=== PATIENT | male | born 1945 | race Caucasian/White ===

== ENCOUNTER → 2016-12-20 | Outpatient (CLI) | payer BC ==
[2016-12-20 12:22] LABS: BASO % 0.7 %; BASO ABS # 0.03 K/uL (0-0.2); COMPLETE YES; EOS % 2.6 %; HEMATOCRIT 36.7 % (42-52); IG% 0.7 %; LYMPH ABS # 1.22 K/uL (1.2-3.4); MEAN CORPUSCULAR HEMOGLOBIN 29.1 pg (25-34); MEAN CORPUSCULAR HGB CONC 34.6 g/dl (32-36); MEAN PLATELET VOLUME 10.6 fL (7.4-10.4); MONO % 10.5 %; NEUT % 56.5 %; PLATELET COUNT 240 K/uL (130-400); RED BLOOD COUNT 4.37 M/uL (4.7-6.1)
[2016-12-20 12:36] LABS: ESTIMATED AVERAGE GLUCOSE 174 mg/dl; HA1C FLAG Normal (Normal)
[2016-12-20 12:40] LABS: ALT/SGPT 23 U/L (12-78); BLOOD UREA NITROGEN 19 mg/dl (7-18); BUN/CREATININE RATIO 22.8 (10-20); CALCIUM 9.8 mg/dl (8.5-10.1); CARBON DIOXIDE 27 mmol/L (21-32); CHLORIDE 103 mmol/L (98-107); CHOLESTEROL 190 mg/dl (0-200); CREATININE 0.82 mg/dl (0.60-1.40); GLUCOSE 169 mg/dl (70-99); POTASSIUM 4.3 mmol/L (3.5-5.1); SODIUM 138 mmol/L (136-145)
[2016-12-20 12:45] LABS: ALB/GLOB RATIO 1.2 (0.9-2); ALKALINE PHOSPHATASE 65 U/L (45-117); AST/SGOT 19 U/L (15-37); CHOLESTEROL/HDL RATIO 4.5; HDL CHOLESTEROL 42 mg/dl; LDL CHOLESTEROL CALCULATED 84 mg/dl; TRIGLYCERIDES 319 mg/dl (0-150); VERY LOW DENSITY LIPOPROT CALC 64 mg/dl
[2016-12-20 13:05] LABS: RATIO 51.3 mcg/mg (0-30.0)
== END | disposition home or self-care (01) ==
LOC: C.LABBFT 08:52
PROVIDERS: ATTEND Internal Medicine
DX: E11.65 Type 2 diabetes mellitus with hyperglycemia (principal); D64.9 Anemia, unspecified; D72.819 Decreased white blood cell count, unspecified; E11.29 Type 2 diabetes mellitus with other diabetic kidney complication; Z12.5 Encounter for screening for malignant neoplasm of prostate; E78.1 Pure hyperglyceridemia

== ENCOUNTER 2020-02-08 08:46 | Inpatient (IN) ==
[2020-02-08] MEDS ORDERED: SODIUM CHLORIDE 0.9% 500 ML IV SCH (09:45)
--- NOTE | 2020-02-08 09:55 | Emergency Department Note ---
History of Present Illness General Chief complaint: Rectal Bleed Stated complaint: BLOODY STOOL Time Seen by Provider: 02/08/20 09:19 Source: patient Mode of arrival: ambulatory Limitations: no limitations History of Present Illness Provider Complaint: + gross hematochezia Onset (ago): 2 day(s) Pain Consistency: + colicky Severity: mild Maximum Pain Intensity: 4 Current Pain Intensity: 2 Relieved By: + none Exacerbated By: + none Context: no history of GI bleed Associated symptoms: + abdominal pain (Right lower abdomen) HPI Narrative: Patient presents with a chief complaint of 2 days of rectal bleeding. He has had about 6 episodes total. He states that Dr. Reyes that I did a colonoscopy on him about 4 to 5 years ago. He feels little tired but otherwise has no significant symptoms. Home Medications Home Medications Medication Instructions Recorded Confirmed Type glimepiride 4 mg tablet 4 mg PO BID #180 tab 02/21/19 02/08/20 Rx gemfibrozil 600 mg tablet 600 mg PO BID #60 tab 08/20/19 02/08/20 Rx tamsulosin 0.4 mg capsule 0.4 mg PO HS #90 cap 09/02/19 02/08/20 Rx metformin 500 mg tablet 1,000 mg PO BID #360 tab 11/18/19 02/08/20 Rx acetaminophen [Tylenol] 325 mg PO QID PRN 02/08/20 02/08/20 History finasteride 5 mg PO QAM 02/08/20 02/08/20 History gabapentin 100 mg PO PM 02/08/20 02/08/20 History ibuprofen 200 mg PO Q6H PRN 02/08/20 02/08/20 History linagliptin [Tradjenta] 5 mg PO QAM 02/08/20 02/08/20 History multivitamin 1 tab PO QAM 02/08/20 02/08/20 History omega-3 fatty acids [[place] 3] 2,000 mg PO QAM 02/08/20 02/08/20 History Allergies Allergy/AdvReac Type Severity Reaction Status Date / Time No Known Allergies Allergy Verified 02/08/20 09:32 Past Med/Surg History Medical History Anemia Anxiety Balanitis BPH associated with nocturia Carpal tunnel syndrome Cataract Diabetes mellitus type 2, uncontrolled 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, uncontrolled Diabetes mellitus, type 2 Diabetic peripheral neuropathy associated with type 2 diabetes mellitus Essential hypertriglyceridemia Hypercholesterolemia Hyperlipidemia Leukopenia Lyme disease 10 years ago - treated Male erectile disorder of organic origin Microalbuminuria Osteoarthritis Surgical History History of cataract surgery RIGHT History of colonoscopy (09/2011) both 05/2006 and 09/2011 showed sigmoid tics only, no pathology, indications were screening in 2006 and anemia in 2011, recheck in 10 years recommended S/P trigger finger release Family History Mother Hypertension Stroke syndrome Brother Stroke syndrome Prostate cancer Creutzfeldt-Clement disease Gastric cancer Father Cancer Iron deficiency anemia Grandmother Diabetes ESRD (end stage renal disease) Social History Smoking Status: Former smoker Tobacco Type: Cigarettes Age Started Using Tobacco: 13; Age Quit Using Tobacco: 48; packs per day: 1; Cigarettes Per Day: 20; Number of Years Since Quit: 25; Second Hand Exposure: Yes (OCCASIONALLY); Hx Alcohol Use: Yes Alcohol type: beer Hx Substance Use: No Preferred Language: Honduran Communication Ability: Effective Autocad Designer Required: No Beliefs That Will Affect Care: None Current Living Situation: Spouse current occupational status: retired Feels Safe at Home: Yes Review of Systems A total of 10 systems reviewed and were otherwise negative Physical Exam Vital Signs: Vital Signs - 24 hr 02/08/20 08:50 Temperature 36.5 C Temperature Source Oral Pulse Rate 88 Respiratory Rate 18 Respiratory Effort / Characteristics Non-Labored Sponta neous Respiratory Depth Normal Respiratory Patter n Regular Blood Pressure 170/68 H Blood Pressure Sheyla n 102 Blood Pressure Pos ition Sitting Pulse Oximetry 99 Oxygen Delivery Me thod Room Air Sepsis Recent Feve r Within 48 Hours No Sepsis New/Unexpla ined Change in Men kristy Status N/A Sepsis Action Take n by Nursing No Action Required Physical Exam: CONSTITUTIONAL/VITAL SIGNS: Reviewed / noted above. GENERAL: Non-toxic in appearance. INTEGUMENTARY: Warm, dry, and [place]. HEAD: Normocephalic. EYES: without scleral icterus or trauma. ENT/OROPHARYNX: clear and moist. LYMPHADENOPATHY/NECK: Is supple without lymphadenopathy or meningismus. RESPIRATORY: Lungs clear and equal. CARDIOVASCULAR: Regular rate and rhythm. GI/ABDOMEN: Soft and nontender. No organomegaly or pulsatile mass. No rebound or guarding. Normal bowel sounds. EXTREMITIES: Warm and well perfused. BACK: No CVA tenderness. NEUROLOGICAL: Intact without focal deficits. PSYCHIATRIC: normal affect. MUSCULOSKELETAL: Normally developed with good muscle tone. Rectal: Maroon colored blood that is guaiac positive TRIAGE NURSING DOCUMENTATION REVIEWED. Course Administered Medications Discontinued Medications Sodium Chloride (Nss) 500 mls @ 999 mls/hr IV .Q31M GEENA Stop: 02/08/20 10:15 Last Infusion: 02/08/20 11:00 Dose: 0 mls/hr Documented by: [id number] Admin: 02/08/20 10:26 Dose: 999 mls/hr Documented by: [id number] Ioversol (Ioversol 100ml) 94 ml IV ONCE ONE Stop: 02/08/20 11:19 Last Admin: 02/08/20 11:18 Dose: 94 ml Documented by: [id number] Medical Decision Making Differential Diagnosis Differential includes acute coronary syndrome, myocardial infarction, CVA, TIA, anemia, infection, pneumonia, UTI, pyelonephritis, poor nutrition, dehydration, electrolyte disturbance,hypoglycemia upper, lower GI bleed. Medical Records Attestation: I reviewed the patient's medical records. Home Medications Current Medication List: was personally reviewed by me Laboratory Data Attestation: I reviewed the patient's lab results. Result diagrams: 02/08/20 10:10 02/08/20 10:10 Lab Results 02/08/20 02/08/20 02/08/20 Range/Units 10:07 10:10 10:10 WBC 4.27 L (4.8-10.8) K/uL RBC 3.89 L (4.7-6.1) M/uL Hgb 9.9 L (14.0-18.0) g/dL Hct 30.5 L (42-52) % MCV 78.4 L (80-100) fL MCH 25.4 (25-34) pg MCHC 32.5 (32-36) g/dL RDW Std Deviation 47.3 H (36.4-46.3) fL RDW Coeff of Jessica 16.7 H (11.5-14.5) % Plt Count 234 (130-400) K/uL MPV 9.7 (7.4-10.4) fL Immature Gran % (Auto) 0.5 % Neut % (Auto) 70.4 % Lymph % (Auto) 18.7 % [place] % (Auto) 8.0 % Eos % (Auto) 1.9 % Baso % (Auto) 0.5 % Neut # (Auto) 3.01 (1.4-6.5) K/uL Lymph # (Auto) 0.80 L (1.2-3.4) K/uL [place] # (Auto) 0.34 (0.11-0.59) K/uL Eos # (Auto) 0.08 (0-0.5) K/uL Baso # (Auto) 0.02 (0-0.2) K/uL Immature Gran # (Auto) 0.02 (0.00-0.02) K/uL PT (9.0-12.0) Seconds INR (0.9-1.1) APTT (21.0-31.0) Seconds PTT Ratio Sodium (136-145) mmol/L Potassium (3.5-5.1) mmol/L Chloride (98-107) mmol/L Carbon Dioxide (21-32) mmol/L Anion Gap (3-11) BUN (7-18) mg/dl Creatinine (0.6-1.4) mg/dl Est Cr Clr Drug Dosing ml/min Est GFR ( Amer) Est GFR (Non-Af Amer) BUN/Creatinine Ratio (10-20) Glucose (70-99) mg/dl Calcium (8.5-10.1) mg/dl Total Bilirubin (0.2-1) mg/dl AST (15-37) U/L ALT (12-78) U/L Alkaline Phosphatase (45-117) U/L Total Protein (6.4-8.2) gm/dl Albumin (3.4-5.0) gm/dl Globulin (2.5-4.0) gm/dl Albumin/Globulin Ratio (0.9-2) POC Stool Occult Blood Positive A (Negative) Blood Type A Positive Antibody Screen NEGATIVE 02/08/20 02/08/20 Range/Units 10:10 10:10 WBC (4.8-10.8) K/uL RBC (4.7-6.1) M/uL Hgb (14.0-18.0) g/dL Hct (42-52) % MCV (80-100) fL MCH (25-34) pg MCHC (32-36) g/dL RDW Std Deviation (36.4-46.3) fL RDW Coeff of Jessica (11.5-14.5) % Plt Count (130-400) K/uL MPV (7.4-10.4) fL Immature Gran % (Auto) % Neut % (Auto) % Lymph % (Auto) % [place] % (Auto) % Eos % (Auto) % Baso % (Auto) % Neut # (Auto) (1.4-6.5) K/uL Lymph # (Auto) (1.2-3.4) K/uL [place] # (Auto) (0.11-0.59) K/uL Eos # (Auto) (0-0.5) K/uL Baso # (Auto) (0-0.2) K/uL Immature Gran # (Auto) (0.00-0.02) K/uL PT 11.1 (9.0-12.0) Seconds INR 1.1 (0.9-1.1) APTT 25.2 (21.0-31.0) Seconds PTT Ratio 0.9 Sodium 138 (136-145) mmol/L Potassium 4.3 (3.5-5.1) mmol/L Chloride 106 (98-107) mmol/L Carbon Dioxide 24 (21-32) mmol/L Anion Gap 9.0 (3-11) BUN 23 H (7-18) mg/dl Creatinine 0.86 (0.6-1.4) mg/dl Est Cr Clr Drug Dosing 63.6 ml/min Est GFR ( Amer) 97.6 Est GFR (Non-Af Amer) 84.2 BUN/Creatinine Ratio 26.1 H (10-20) Glucose 236 H (70-99) mg/dl Calcium 8.7 (8.5-10.1) mg/dl Total Bilirubin 0.2 (0.2-1) mg/dl AST 15 (15-37) U/L ALT 18 (12-78) U/L Alkaline Phosphatase 67 (45-117) U/L Total Protein 7.2 (6.4-8.2) gm/dl Albumin 3.8 (3.4-5.0) gm/dl Globulin 3.4 (2.5-4.0) gm/dl Albumin/Globulin Ratio 1.1 (0.9-2) POC Stool Occult Blood (Negative) Blood Type Antibody Screen Imaging Data Radiologist's Impression: CT scan of the abdomen pelvis: IMPRESSION: 1. No evidence of bowel obstruction. No evidence of free air 2. No evidence of acute appendicitis. No evidence of acute diverticulitis 3. Hyperdense material within the cecum, concerning for acute hemorrhage given the history of GI bleeding MDM Narrative Patient presents with a chief complaint of 2 days of rectal bleeding. He has jones d about 6 episodes total. He states that Dr. Reyes that I did a colonoscopy on him about 4 to 5 years ago. He feels little tired but otherwise has no significant symptoms. Rectal exam reveals gross blood that is guaiac positive. Gross blood is dark or maroon-colored. Minimal right lower quadrant abdominal tenderness. Impression & Plan Acute lower gastrointestinal bleeding Discharge Plan Visit Data Chief Complaint: Rectal Bleed Stated Complaint: BLOODY STOOL ED Provider: Carrillo Clark Discharge Problem: Acute lower gastrointestinal bleeding Patient Disposition: Being Evaluated by Hospitalist Condition: Good Forms Stand Alone Forms: My [facility], Virtual Emergency Department, Important Visit Information Prescriptions Prescriptions: No Action glimepiride 4 mg tablet 4 mg PO BID Qty: 180 RF: 3 gemfibrozil 600 mg tablet 600 mg PO BID Qty: 60 RF: 5 tamsulosin 0.4 mg capsule 0.4 mg PO HS Qty: 90 RF: 1 metformin 500 mg tablet 1,000 mg PO BID Qty: 360 RF: 3 Tradjenta 5 mg tablet 5 mg PO QAM RF: 0 gabapentin 100 mg capsule 100 mg PO PM RF: 0 finasteride 5 mg tablet 5 mg PO QAM RF: 0 multivitamin Tablet 1 tab PO QAM RF: 0 ibuprofen 200 mg Capsule 200 mg PO Q6H PRN (Reason: Pain) RF: 0 [place] 3 Capsule 2,000 mg PO QAM RF: 0 acetaminophen [Tylenol] 325 mg Tablet 325 mg PO QID PRN (Reason: Pain) RF: 0 Referrals Referrals: Ramin Moreno III, MD [Primary Care Provider] -
[2020-02-08 10:23] LABS: Basophils # (auto) 0.02 K/uL (0-0.2); Basophils % (auto) 0.5 %; Eosinophils # (auto) 0.08 K/uL (0-0.5); Eosinophils % (auto) 1.9 %; Hematocrit (blood only) 30.5 % (42-52); Hemoglobin 9.9 g/dL (14.0-18.0); Immature Granulocytes # (auto) 0.02 K/uL (0.00-0.02); Immature Granulocytes % (auto) 0.5 %; Lymphocytes % (auto) 18.7 %; Mean Corpuscular Hemoglobin 25.4 pg (25-34); Mean Corpuscular Hgb Conc 32.5 g/dL (32-36); Mean Corpuscular Volume 78.4 fL (80-100); Mean Platelet Volume 9.7 fL (7.4-10.4); Monocytes # (auto) 0.34 K/uL (0.11-0.59); Neutrophils # (auto) 3.01 K/uL (1.4-6.5); Neutrophils % (auto) 70.4 %; Platelet Count 234 K/uL (130-400); RDW Coefficient of Variation 16.7 % (11.5-14.5); RDW Standard Deviation 47.3 fL (36.4-46.3); Red Blood Count 3.89 M/uL (4.7-6.1); White Blood Count 4.27 K/uL (4.8-10.8)
--- NOTE | 2020-02-08 10:27 | Electrocardiogram Report ---
Test Reason : Blood Pressure : / mmHG Vent. Rate : 070 BPM Atrial Rate : 070 BPM P-R Int : 136 ms QRS Dur : 084 ms QT Int : 396 ms P-R-T Axes : 063 032 048 degrees QTc Int : 427 ms Normal sinus rhythm Normal ECG When compared with ECG of 11-AUG-1997 10:13, No significant change was found Confirmed by Brenton Ventura ([id number]) on 02/08/2020 10:27:36 AM Referred By: REFERRED SELF Confirmed By:Brenton Ventura
[2020-02-08 10:37] LABS: INR 1.1 (0.9-1.1); Partial Thromboplastin Ratio 0.9; Partial Thromboplastin Time 25.2 Seconds (21.0-31.0); Prothrombin Time 11.1 Seconds (9.0-12.0)
[2020-02-08 10:39] LABS: Albumin Level 3.8 gm/dl (3.4-5.0); BUN Creatinine Ratio 26.1 (10-20); Calcium 8.7 mg/dl (8.5-10.1); Creatinine Clr Calc Pharmacy 63.6 ml/min; Est GFR (African American) 97.6; Est GFR (Non-African American) 84.2; Potassium 4.3 mmol/L (3.5-5.1)
[2020-02-08 10:41] LABS: Albumin Globulin Ratio 1.1 (0.9-2); Bilirubin,Total 0.2 mg/dl (0.2-1); Globulin 3.4 gm/dl (2.5-4.0); Total Protein 7.2 gm/dl (6.4-8.2)
[2020-02-08] MEDS ORDERED: IOVERSOL 100ml IV ONE (11:18)
--- NOTE | 2020-02-08 11:35 | CT Scan Report ---
CT abd pelvis IV con only CLINICAL HISTORY: Right lower quadrant abdominal pain. Gastrointestinal hemorrhage. COMPARISON STUDY: None. TECHNIQUE: The patient was scanned in a dynamic helical fashion during intravenous administration of 94 cc of Optiray 320. A dose lowering technique was utilized adhering to the principles of ALARA. CT DOSE: 416.00 mGy.cm FINDINGS: Lower chest: The heart is normal in size and configuration, without pericardial effusion. The lung ba ses and pleural spaces are clear. Liver: The contrast-enhanced liver is normal in size, contour, and attenuation. There is no intrahepa tic biliary ductal dilatation. The hepatic veins and portal veins are patent. Gallbladder: Unremarkable. Spleen: Mildly enlarged measuring 12.8 cm Pancreas: Unremarkable. Adrenal glands: Unremarkable. Kidneys: No solid renal masses are visualized. There is mild prominence the right renal collecting sy stem. No ureteral calculi are visualized. Bowel: There are no transition zones indicate bowel obstruction. There is no evidence of acute divert iculitis. There is no evidence of acute appendicitis. There is formed fecal material within nondilate d distal small bowel loops. There is hyperdense material within the cecum. This is concerning for acu te hemorrhage given history of GI bleeding, and the lack of similar appearing hyperdense material wit hin the remainder of the bowel. Peritoneum: There is no intraperitoneal free air or abdominal ascites. There is a small fat-containin g inguinal hernia Vasculature: The abdominal aorta is normal in course and caliber. Adenopathy: None. Pelvic viscera: The prostate is enlarged Skeletal structures: No destructive osseous lesions are seen. IMPRESSION: 1. No evidence of bowel obstruction. No evidence of free air 2. No evidence of acute appendicitis. No evidence of acute diverticulitis 3. Hyperdense material within the cecum, concerning for acute hemorrhage given the history of GI blee ding ACT 112: Negative or not required by law. Electronically signed by: Goran Parra M.D. 02/08/2020 11:33 AM
[2020-02-08] MEDS ORDERED: ONDANSETRON INJ 2 MG/ML 2 ML VIAL IV PRN (11:57)
[2020-02-08] MEDS: LACTATED RINGER'S 1,000 ML IV SCH (13:42)
[2020-02-08 15:12] LABS: Hematocrit (blood only) 25.3 % (42-52); Hemoglobin 8.7 g/dL (14.0-18.0)
[2020-02-08] MEDS ORDERED: PNEUMOCOCCAL Polysaccharide Vaccine 25mcg/0.5mL vial/Syr IM ONE (16:00)
[2020-02-08] MEDS: ACETAMINOPHEN 325 MG TAB PO PRN ×2 (17:08→21:03)
[2020-02-08 19:20] LABS: Hematocrit (blood only) 25.3 % (42-52); Hemoglobin 8.6 g/dL (14.0-18.0)
--- NOTE | 2020-02-08 19:40 | History & Physical Report ---
Date of Service February 08, 2020 Assessment & Plan (1) Acute lower gastrointestinal bleeding: Will admit to med surg Place on NPO monitor for further bleeding. will monitor hemoglobin (2) Hypercholesterolemia: will hold oral meds for now (3) Essential hypertriglyceridemia: stable will hold home meds (4) Diabetic peripheral neuropathy associated with type 2 diabetes mellitus: will consult glycemic control previous A1C is poorly controlled will retest in AM (5) Diabetes mellitus type 2, uncontrolled: as stated above. will monitor currently NPO (6) Acute blood loss anemia: secondary to problem 1. does not require transfusion at this time, likely was hemoconcentrated when he came in which explains his early dip. dvt: scd code status: DNR/DNI Admission and Anticipated Discharge Date Admission Date: February 08, 2020 History of Present Illness Chief Complaint: "shitting blood" Primary Care Provider: Ramin Moreno MD 74 yo male with PMH listed below comes into the ED with a 2 day history of hematemesis. He reports his toilet is completely red when he had a bowel movement. He reports though that he is not fatigued or dizzy and denies any other symptoms on review of systems. He also denies any history of diverticulitis. Allergies Allergy/AdvReac Type Severity Reaction Status Date / Time No Known Allergies Allergy Verified 02/08/20 09:32 Home Medications Home Medications Medication Instructions Recorded Confirmed Type glimepiride 4 mg tablet 4 mg PO BID #180 tab 02/21/19 02/08/20 Rx gemfibrozil 600 mg tablet 600 mg PO BID #60 tab 08/20/19 02/08/20 Rx tamsulosin 0.4 mg capsule 0.4 mg PO HS #90 cap 09/02/19 02/08/20 Rx metformin 500 mg tablet 1,000 mg PO BID #360 tab 11/18/19 02/08/20 Rx acetaminophen [Tylenol] 325 mg PO QID PRN 02/08/20 02/08/20 History finasteride 5 mg PO QAM 02/08/20 02/08/20 History gabapentin 100 mg PO PM 02/08/20 02/08/20 History ibuprofen 200 mg PO Q6H PRN 02/08/20 02/08/20 History linagliptin [Tradjenta] 5 mg PO QAM 02/08/20 02/08/20 History multivitamin 1 tab PO QAM 02/08/20 02/08/20 History omega-3 fatty acids [[place] 3] 2,000 mg PO QAM 02/08/20 02/08/20 History Past Med/Surg History Medical History Anemia Anxiety Balanitis BPH associated with nocturia Carpal tunnel syndrome Cataract Diabetes mellitus type 2, uncontrolled 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, uncontrolled Diabetes mellitus, type 2 Diabetic peripheral neuropathy associated with type 2 diabetes mellitus Essential hypertriglyceridemia Hypercholesterolemia Hyperlipidemia Leukopenia Lyme disease 10 years ago - treated Male erectile disorder of organic origin Microalbuminuria Osteoarthritis Surgical History History of cataract surgery RIGHT History of colonoscopy (09/2011) both 05/2006 and 09/2011 showed sigmoid tics only, no pathology, indications were screening in 2006 and anemia in 2011, recheck in 10 years recommended S/P trigger finger release Family History Mother Hypertension Stroke syndrome Brother Stroke syndrome Prostate cancer Creutzfeldt-Clement disease Gastric cancer Father Cancer Iron deficiency anemia Grandmother Diabetes ESRD (end stage renal disease) Social History Smoking Status: Former smoker Tobacco Type: Cigarettes Age Started Using Tobacco: 13; Age Quit Using Tobacco: 48; packs per day: 1; Cigarettes Per Day: 20; Number of Years Since Quit: 25; Second Hand Exposure: Yes (OCCASIONALLY); Hx Alcohol Use: Yes Alcohol type: beer Hx Substance Use: No Preferred Language: Stateless Communication Ability: Effective Room Attendants Required: No Beliefs That Will Affect Care: None Current Living Situation: Spouse current occupational status: retired Other Information That Helps Us Care for You: No Feels Safe at Home: Yes Review of Systems Review of Systems: All systems reviewed & are unremarkable except as noted in HPI & below Physical Exam Constitutional: WD/WN, vitals as above well developed Eyes: PERRL, conjunctivae normal, anicteric sclerae ENMT: external ear and nose normal, oropharynx normal Neck: trachea midline, no thyromegaly Respiratory: normal respiratory effort, lungs clear to auscultation Cardiovascular: RRR, no murmur, no edema Gastrointestinal (Abdomen): normal bowel sounds, soft, nontender, no hepatosplenomegaly Musculoskeletal: no cyanosis or clubbing, extremities motor strength 5/5 Skin: no rashes, warm and dry Neurologic: CN's II-XI intact bilaterally Psychiatric: A+Ox3, euthymic affect Results & Data Results & Data ([facility]) Vital Signs (Past 12 Hours) Vital Signs Temp Pulse Pulse Resp BP BP Pulse Ox 02/08/20 15:45 36.7 C 70 18 147/65 H 95 02/08/20 13:20 36.6 C 66 18 156/70 H 98 02/08/20 12:00 74 18 155/78 H 98 02/08/20 08:50 36.5 C 88 18 170/68 H 99 PG Care Time/CCT Total # of Minutes Spent Total Time Spent with Patient: Total time spent is greater than 50% in coordination of care (as documented) at patient's floor/unit and/or counseling patient: Coding Level of Care Code 88348 Initial Inpt Care Lvl 3 Diagnoses Acute lower gastrointestinal bleeding K92.2 Hypercholesterolemia E78.00 Essential hypertriglyceridemia E78.1 Diabetic peripheral neuropathy associated with type 2 diabetes mellitus E11.42 Diabetes mellitus type 2, uncontrolled E11.65 Acute blood loss anemia D62
[2020-02-09] MEDS: LACTATED RINGER'S 1,000 ML IV SCH ×2 (01:18→16:02)
[2020-02-09] MEDS: ACETAMINOPHEN 325 MG TAB PO PRN ×2 (01:22→07:32)
[2020-02-09 07:21] LABS: Hematocrit (blood only) 26.3 % (42-52); Hemoglobin 8.6 g/dL (14.0-18.0); Mean Corpuscular Hemoglobin 25.7 pg (25-34); Mean Corpuscular Hgb Conc 32.7 g/dL (32-36); Mean Corpuscular Volume 78.5 fL (80-100); Mean Platelet Volume 9.7 fL (7.4-10.4); Platelet Count 221 K/uL (130-400); RDW Coefficient of Variation 16.5 % (11.5-14.5); RDW Standard Deviation 47.5 fL (36.4-46.3); Red Blood Count 3.35 M/uL (4.7-6.1)
[2020-02-09 07:54] LABS: BUN Creatinine Ratio 21.6 (10-20); Calcium 9.1 mg/dl (8.5-10.1); Est GFR (African American) 105.6; Est GFR (Non-African American) 91.1; Potassium 3.9 mmol/L (3.5-5.1)
[2020-02-09] MEDS ORDERED: PHARMACY GLYCEMIC MGMT CONSULT PRN (09:02)
[2020-02-09] MEDS ORDERED: GLUCAGON FOR INJ 1 MG VIAL SQ PRN (09:15)
[2020-02-09] MEDS ORDERED: GLUCOSE 40% GEL 15 GM TUBE PO PRN (09:15)
[2020-02-09] MEDS ORDERED: CARBOHYDRATES FOR HYPOGLYCEMIA PO PRN (09:15)
[2020-02-09] MEDS ORDERED: GLUCOSE 10 TABS/TUBE PO PRN (09:15)
[2020-02-09] MEDS ORDERED: DEXTROSE 50% 50 ML SYRINGE IV PRN (09:15)
[2020-02-09] MEDS: INSULIN GLARGINE SOLOSTAR 100 UNITS/ML 3 ML PEN SC SCH ×2 (10:13→21:19)
[2020-02-09] MEDS: INSULIN ASPART 100 UNITS/ML 3 ML PEN SC SCH ×4 (10:13→21:18)
--- NOTE | 2020-02-09 11:34 | History & Physical Report ---
Date of Service February 09, 2020 Assessment & Plan (1) Acute blood loss anemia: (2) Acute lower gastrointestinal bleeding: Clear liquid diet NPO after midnight Bowel prep today Colonoscopy tomorrow for further evaluation of Lower GI bleeding Continue supportive care Admission and Anticipated Discharge Date Admission Date: February 08, 2020 History of Present Illness Chief Complaint: Hematochezia Primary Care Provider: Ramin Moreno MD Mr. Diop is a 74 yo CM who presented to the ER last night with hematochezia. He states that he had multiple episodes of bright red blood per rectum filling the toilet bowl. Upon arrival to the ER, he was noted to have an H/H of 8.6/26.3. He has been chronically anemic, with a Hgb of 9.1 in October as per his prior labs. At the time I saw him this AM, he states that he is feeling much better. He notes that he did have a brown stool this AM. He denies any lightheadedness, dizziness, abdominal pain, fevers, chills, nausea, vomiting, diarrhea, hematemesis or melena. He does occasionally take Ibuprofen therapy. He states that his last colonoscopy was approximately 6 years ago, however his most recent colonoscopy per our records is from 2011, and he was found to have diverticulosis and Internal hemorrhoids at that time. He has no further complaints. Allergies Allergy/AdvReac Type Severity Reaction Status Date / Time No Known Allergies Allergy Verified 02/08/20 09:32 Home Medications Home Medications Medication Instructions Recorded Confirmed Type glimepiride 4 mg tablet 4 mg PO BID #180 tab 02/21/19 02/08/20 Rx gemfibrozil 600 mg tablet 600 mg PO BID #60 tab 08/20/19 02/08/20 Rx tamsulosin 0.4 mg capsule 0.4 mg PO HS #90 cap 09/02/19 02/08/20 Rx metformin 500 mg tablet 1,000 mg PO BID #360 tab 11/18/19 02/08/20 Rx acetaminophen [Tylenol] 325 mg PO QID PRN 02/08/20 02/08/20 History finasteride 5 mg PO QAM 02/08/20 02/08/20 History gabapentin 100 mg PO PM 02/08/20 02/08/20 History ibuprofen 200 mg PO Q6H PRN 02/08/20 02/08/20 History linagliptin [Tradjenta] 5 mg PO QAM 02/08/20 02/08/20 History multivitamin 1 tab PO QAM 02/08/20 02/08/20 History omega-3 fatty acids [[place] 3] 2,000 mg PO QAM 02/08/20 02/08/20 History Past Med/Surg History Medical History Anemia Anxiety Balanitis BPH associated with nocturia Carpal tunnel syndrome Cataract Diabetes mellitus type 2, uncontrolled 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, uncontrolled Diabetes mellitus, type 2 Diabetic peripheral neuropathy associated with type 2 diabetes mellitus Essential hypertriglyceridemia Hypercholesterolemia Hyperlipidemia Leukopenia Lyme disease 10 years ago - treated Male erectile disorder of organic origin Microalbuminuria Osteoarthritis Surgical History History of cataract surgery RIGHT History of colonoscopy (09/2011) both 05/2006 and 09/2011 showed sigmoid tics only, no pathology, indications were screening in 2006 and anemia in 2011, recheck in 10 years recommended S/P trigger finger release Family History Mother Hypertension Stroke syndrome Brother Stroke syndrome Prostate cancer Creutzfeldt-Clement disease Gastric cancer Father Cancer Iron deficiency anemia Grandmother Diabetes ESRD (end stage renal disease) Social History Smoking Status: Former smoker Tobacco Type: Cigarettes Age Started Using Tobacco: 13; Age Quit Using Tobacco: 48; packs per day: 1; Cigarettes Per Day: 20; Number of Years Since Quit: 25; Second Hand Exposure: Yes (OCCASIONALLY); Hx Alcohol Use: Yes Alcohol type: beer Hx Substance Use: No Preferred Language: Divehi Communication Ability: Effective Nuclear Weapons Mechanical Specialist Required: No Beliefs That Will Affect Care: None Current Living Situation: Spouse current occupational status: retired Other Information That Helps Us Care for You: No Feels Safe at Home: Yes Review of Systems All systems reviewed & are unremarkable except as noted in HPI & below Physical Exam Constitutional: WD/WN, vitals as above Eyes: PERRL, conjunctivae normal, anicteric sclerae ENMT: external ear and nose normal, oropharynx normal Neck: trachea midline, no thyromegaly Respiratory: normal respiratory effort, lungs clear to auscultation Cardiovascular: RRR, no murmur, no edema Gastrointestinal (Abdomen): normal bowel sounds, soft, nontender, no hepatosplenomegaly Skin: no rashes, warm and dry Psychiatric: A+Ox3, euthymic affect Results & Data ([facility]) Vital Signs (Past 12 Hours) Vital Signs Temp Pulse Resp BP Pulse Ox 02/09/20 07:18 36.5 C 79 16 132/61 96 02/09/20 01:20 78 18 139/64 97 Coding Level of Care Code 45707 Initial Inpt Care Lvl 3 Diagnoses Acute blood loss anemia D62 Acute lower gastrointestinal bleeding K92.2
--- NOTE | 2020-02-09 13:16 | Pharmacy Report ---
Pharmacy Glycemic Short Note 2 - Date of Service February 09, 2020 - Glycemic Short BSG Results (Last 24 hours): 02/08/20 02/08/20 02/09/20 13:40 18:03 05:56 Glucose POC Glucose 261 H 224 H 236 H 02/09/20 02/09/20 02/09/20 07:08 08:17 11:57 Glucose 216 H POC Glucose 264 H 292 H OUTPATIENT ANTIDIABETIC REGIMEN: * glimepiride 4 mg Po BID + metformin 1g PO BID + linagliptin 5 mg qAM * A1c = 8.9% (11/14/19) ASSESSMENT: * Sathish is a 74 yo T2DM admitted for lower GI bleeding * Patient is currently on a clear liquid diet. He will be NPO at midnight for a colonoscopy tomorrow * A1c indicates that patient will require both basal and bolus insulin. Will start with weight based doses in insulin naive patient. * Of note, there was less than 2 hours between AM insulin administration and l unch BSG check. Because of this, I am hesitant to make changes and would like to give Lantus more time to start working. PLAN FOR INPATIENT GLYCEMIC CONTROL: * Hold outpatient oral diabetes medications * Basal insulin * Lantus per scale units SQ BID * 7 units for BSG < 140 mg/dL * 12 units for BSG 140 mg/dL or more * Bolus insulin * NovoLog per scale ACHS or Q6hrs while NPO * Goal Range: Low 120 mg/dL - High 150 mg/dL * Correction Factor: 35 mg/dL/unit * Nutritional / Prandial insulin per carb ratio of 1 unit per 11 grams CHO consumed PLAN FOR DISCHARGE: * tbd
--- NOTE | 2020-02-09 16:29 | Hospitalist Progress Note ---
Date of Service February 09, 2020 Assessment & Plan (1) Acute lower gastrointestinal bleeding: No further bleeding on 02/08. - Hgb stable at 8.7 today; however, lower than his priors around 9-10. - GI consulted - Plan for colonoscopy tomorrow. - Will give IV iron x 2 doses while inpatient. (2) Acute blood loss anemia: Secondary to problem 1. - Does not require transfusion at this time, likely was hemoconcentrated when he came in which explains his early dip. (3) Diabetes mellitus type 2, uncontrolled: A1c was 8.9% in 10/2019. Currently pending. - Hold home oral meds - Long-acting and sliding scale insulin -> Pharmacy following (4) Hypercholesterolemia: - Continue gemfibrozil as able. (5) DVT prophylaxis: SCDs - Low DVT risk per admission calculator & GI bleeding Admission and Anticipated Discharge Date Admission Date: February 08, 2020 Subjective Doing well today. No major concerns. Reports no fevers/chills, chest pain, shortness of breath, abdominal pain, nausea, or vomiting. Physical Exam Constitutional: WD/WN, vitals as above Eyes: EOM intact bilaterally; no conjunctival abnormality ENMT: external ear and nose normal, oropharynx normal Neck: trachea midline, no thyromegaly normal visual inspection Respiratory: normal respiratory effort, lungs clear to auscultation no respiratory distress Cardiovascular: RRR, no murmur, no edema Gastrointestinal (Abdomen): Inspection/Auscultation: abdomen normal to inspection; abdomen not distended Musculoskeletal: no cyanosis or clubbing, extremities motor strength 5/5 Skin: no rashes, warm and dry Neurologic: moves all extremities and awake Psychiatric: Orientation: alert, oriented to person and cooperative Results & Data Results & Data ([facility]) Vital Signs (Past 12 Hours) Vital Signs Temp Pulse Resp BP Pulse Ox 02/09/20 15:55 36.9 C 76 18 132/61 99 02/09/20 07:18 36.5 C 79 16 132/61 96 PG Care Time/CCT Total # of Minutes Spent Total Time Spent with Patient: Total time spent is greater than 50% in coordination of care (as documented) at patient's floor/unit and/or counseling patient: Coding Level of Care Code 12346 Subseq Hosp Care Lvl 2 Diagnoses Acute lower gastrointestinal bleeding K92.2 Acute blood loss anemia D62 Diabetes mellitus type 2, uncontrolled E11.65 Hypercholesterolemia E78.00 DVT prophylaxis Z29.9
[2020-02-09] MEDS ORDERED: IRON SUCROSE 300 MG in SODIUM CHLORIDE 0.9% 250 ML IV SCH (17:30)
[2020-02-09] MEDS ORDERED: LAVAGE SOLUTION 4000ML PO SCH (20:00)
[2020-02-10] MEDS: INSULIN ASPART 100 UNITS/ML 3 ML PEN SC SCH ×6 (00:15→17:54)
[2020-02-10 06:12] LABS: Hematocrit (blood only) 25.2 % (42-52); Hemoglobin 8.6 g/dL (14.0-18.0); Mean Corpuscular Hemoglobin 26.8 pg (25-34); Mean Corpuscular Hgb Conc 34.1 g/dL (32-36); Mean Corpuscular Volume 78.5 fL (80-100); Mean Platelet Volume 9.9 fL (7.4-10.4); Platelet Count 236 K/uL (130-400); RDW Coefficient of Variation 16.1 % (11.5-14.5); RDW Standard Deviation 46.1 fL (36.4-46.3); Red Blood Count 3.21 M/uL (4.7-6.1); White Blood Count 6.75 K/uL (4.8-10.8)
[2020-02-10 06:36] LABS: Estimated Average Glucose 192 mg/dl; Hemoglobin A1C 8.3 % (4.5-5.6)
[2020-02-10 06:56] LABS: BUN Creatinine Ratio 12.7 (10-20); Calcium 9.1 mg/dl (8.5-10.1); Creatinine Clr Calc Pharmacy 85.4 ml/min; Est GFR (African American) 110.2; Est GFR (Non-African American) 95.1; Magnesium 2.2 mg/dl (1.8-2.4); Potassium 3.2 mmol/L (3.5-5.1)
--- NOTE | 2020-02-10 08:24 | Anesthesiology Consultation ---
Date of Service February 10, 2020 Assessment & Plan (1) Encounter for pre-operative examination: Chart Review Chart Review: Acceptable Risk for Surgery History Surgery Operation Date: 02/10/20 16:00 Proposed Procedures p Colonoscopy Dr. Jovanny Petty, Height/Weight Height: 5 ft 5 in Weight: 70.9 kg Allergies Allergy/AdvReac Type Severity Reaction Status Date / Time No Known Allergies Allergy Verified 02/08/20 09:32 Medications Home Medications Medication Instructions Recorded Confirmed Last Taken glimepiride 4 mg tablet 4 mg PO BID #180 tab 02/21/19 02/08/20 02/07/20 gemfibrozil 600 mg tablet 600 mg PO BID #60 tab 08/20/19 02/08/20 02/07/20 tamsulosin 0.4 mg capsule 0.4 mg PO HS #90 cap 09/02/19 02/08/20 02/07/20 metformin 500 mg tablet 1,000 mg PO BID #360 tab 11/18/19 02/08/20 02/07/20 acetaminophen [Tylenol] 325 mg PO QID PRN 02/08/20 02/08/20 02/07/20 finasteride 5 mg PO QAM 02/08/20 02/08/20 02/07/20 gabapentin 100 mg PO PM 02/08/20 02/08/20 02/07/20 ibuprofen 200 mg PO Q6H PRN 02/08/20 02/08/20 02/07/20 linagliptin [Tradjenta] 5 mg PO QAM 02/08/20 02/08/20 02/07/20 multivitamin 1 tab PO QAM 02/08/20 02/08/20 02/07/20 omega-3 fatty acids [Benkelman 3] 2,000 mg PO QAM 02/08/20 02/08/20 02/07/20 Active Medications Generic Name Dose Route Start Last Admin Trade Name Freq PRN Reason Stop Dose Admin Acetaminophen 650 mg 02/08/20 11:57 02/09/20 07:32 Acetaminophen 325 Mg Tab PO 03/09/20 11:56 650 mg Q4H PRN Administration pain/fever Iron Sucrose 300 mg/ Sodium 265 mls @ 175 mls/hr 02/09/20 17:30 02/09/20 20:07 Chloride IV 02/10/20 19:01 Infused DAILY@1730 [facility] Infusion Insulin Aspart 0 units 02/10/20 07:35 02/10/20 08:07 Insulin Aspart 100 Units/Ml 3 Ml Pen SC 03/11/20 07:34 Not Given Q6 [facility] Insulin Glargine 0 units 02/09/20 09:15 02/09/20 21:19 Insulin Glargine Solostar 100 Units/Ml 3 Ml Pen SC 03/10/20 09:14 12 units BID GEENA Administration Protocol Past Medical History Medical History Anemia Anxiety Balanitis BPH associated with nocturia Carpal tunnel syndrome Cataract Diabetes mellitus type 2, uncontrolled 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, uncontrolled Diabetes mellitus, type 2 Diabetic peripheral neuropathy associated with type 2 diabetes mellitus Essential hypertriglyceridemia Hypercholesterolemia Hyperlipidemia Leukopenia Lyme disease 10 years ago - treated Male erectile disorder of organic origin Microalbuminuria Osteoarthritis Past Family History Family History Mother Hypertension Stroke syndrome Brother Stroke syndrome Prostate cancer Creutzfeldt-Clement disease Gastric cancer Father Cancer Iron deficiency anemia Grandmother Diabetes ESRD (end stage renal disease) Past Surgical History Surgical History History of cataract surgery RIGHT History of colonoscopy (09/2011) both 05/2006 and 09/2011 showed sigmoid tics only, no pathology, indications were screening in 2006 and anemia in 2011, recheck in 10 years recommended S/P trigger finger release Social History Smoking Status: Former smoker tobacco type: cigarettes Smoking cigarettes per day: 20 Hx Alcohol Use: Yes Alcohol type: beer alcohol intake frequency: holidays/special occasions only Hx Substance Use: No substance use type: does not use Physical Exam Vital Signs Last Vital Signs Temp 36.7 C 02/10/20 07:34 Pulse 79 02/10/20 07:34 Resp 16 02/10/20 07:34 BP 132/47 L 02/10/20 07:34 Pulse Ox 99 02/10/20 07:34 Testing Laboratory Results 02/10/20 05:29 02/10/20 05:29 PT 11.1 Seconds (9.0-12.0) 02/08/20 10:10 INR 1.1 (0.9-1.1) 02/08/20 10:10 APTT 25.2 Seconds (21.0-31.0) 02/08/20 10:10 Hemoglobin A1c 8.3 % (4.5-5.6) H 02/09/20 07:08 Blood Type A Positive 02/08/20 10:10 Antibody Screen NEGATIVE 02/08/20 10:10 02/10/20 02/10/20 02/10/20 06:19 04:05 00:04 POC Glucose 124 H 113 H 330 H* 02/10/20 02/09/20 00:02 20:40 POC Glucose 338 H* 220 H
--- NOTE | 2020-02-10 09:12 | History & Physical Bridge Note ---
Date of Service February 10, 2020 History & Physical Bridge Note I have examined the patient, reviewed the History & Physical and in the interval since the performance of the History & Physical I have noted the following changes of clinical significance: no changes noted. Patient reports he completed the bowel preparation and is passing liquid stools. No rectal bleeding, n/v or abdominal pain. PE: A&Ox3. Lungs CTA bilaterally. RRR without M/R/G A/P: Lower GIB. Proceed with colonoscopy with Dr. Petty today. Supervising Physician Co-Signing Physician Notes Agree with Ariadne Rangel Abd: Soft, NT, ND, +BS Continue current therapy Proceed with colonoscopy
--- NOTE | 2020-02-10 10:20 | Pharmacy Report ---
Pharmacy Glycemic Short Note 2 - Date of Service February 10, 2020 - Glycemic Short BSG Results (Last 24 hours): 02/09/20 02/09/20 02/09/20 11:57 17:09 20:40 Glucose POC Glucose 292 H 160 H 220 H 02/10/20 02/10/20 02/10/20 00:02 00:04 04:05 Glucose POC Glucose 338 H* 330 H* 113 H 02/10/20 02/10/20 05:29 06:19 Glucose 103 H POC Glucose 124 H OUTPATIENT ANTIDIABETIC REGIMEN: * glimepiride 4 mg Po BID + metformin 1g PO BID + linagliptin 5 mg qAM * A1c = 8.9% (11/14/19) ASSESSMENT: 02/09 * Patient received total of 52 units of insulin yesterday, of which 24 were bas al insulin * Fasting BSG this AM w/in range at 103 mg/dL - patient NPO for colonoscopy / will hold AM basal insulin. Lunch time BSG trending up - give partial basal dose now and resume scale for basal at HS time * No change in CF/CR 02/08 * Sathish is a 74 yo T2DM admitted for lower GI bleeding * Patient is currently on a clear liquid diet. He will be NPO at midnight for a colonoscopy tomorrow * A1c indicates that patient will require both basal and bolus insulin. Will start with weight based doses in insulin naive patient. * Of note, there was less than 2 hours between AM insulin administration and lunch BSG check. Because of this, I am hesitant to make changes and would like to give Lantus more time to start working. PLAN FOR INPATIENT GLYCEMIC CONTROL: * Hold outpatient oral diabetes medications * Basal insulin * Lantus per scale units SQ BID * 7 units for BSG < 140 mg/dL * 10 units for BSG 140 mg/dL or more * Bolus insulin * NovoLog per scale ACHS or Q6hrs while NPO * Goal Range: Low 120 mg/dL - High 150 mg/dL * Correction Factor: 35 mg/dL/unit * Nutritional / Prandial insulin per carb ratio of 1 unit per 11 grams CHO consumed
[2020-02-10] MEDS ORDERED: IRON SUCROSE 300 MG in SODIUM CHLORIDE 0.9% 250 ML IV STA (11:49)
[2020-02-10] MEDS ORDERED: INSULIN GLARGINE SOLOSTAR 100 UNITS/ML 3 ML PEN SC ONE (12:15)
[2020-02-10] MEDS ORDERED: PROPOFOL IV EMULSION 10 MG/ML 20 ML VIAL IV ONE ×2 (16:02→16:16)
[2020-02-10] MEDS ORDERED: LIDOCAINE HCL 2% 2 ML VIAL/AMP(20MG/ML) INFIL ONE (16:02)
--- NOTE | 2020-02-10 16:39 | Anesthesiology Progress Note ---
Date of Service February 10, 2020 Anesthesia Post Procedure Vital Signs Vital Signs: Temp Pulse Pulse Resp BP BP Pulse Ox 02/10/20 16:37 72 16 129/59 L 99 02/10/20 16:22 70 16 114/57 L 99 02/10/20 15:35 36.8 C 70 16 148/64 H 97 02/10/20 15:15 36.2 C L 73 18 135/68 97 02/10/20 07:34 36.7 C 79 16 132/47 L 99 02/10/20 04:06 36.5 C 74 16 127/53 L 98 02/10/20 00:00 36.2 C L 70 18 158/71 H 99 02/09/20 18:46 36.6 C 70 18 153/66 H 99 02/09/20 18:31 36.7 C 76 16 146/68 H 98 Pain Intensity Bilateral Head: Pain Intensity: 0 Transfer of Care Handoff Completed per policy Notes Mental Status: alert / awake / arousable Patient Amnestic to Procedure: Yes Nausea / Vomiting: adequately controlled Pain: adequately controlled Airway Patency, RR, SpO2: stable & adequate BP & HR: stable & adequate Hydration State: stable & adequate Anesthetic Complications: no major complications apparent
--- NOTE | 2020-02-10 16:43 | GI REPORT ---
Patient Name: Sathish Diop Procedure Date: 02/10/2020 4:07 PM Date of : 1945 Admit Type: Inpatient Age: 74 Gender: Male Attending MD: Lobo Petty DO Procedure: Colonoscopy Providers: Lobo Petty DO Referring MD: Estevan Rodgers Md Indications: Hematochezia Medicines: Monitored Anesthesia Care Complications: No immediate complications. Estimated Blood Loss: Estimated blood loss: none. Procedure: Pre-Anesthesia Assessment: - Prior to the procedure, a History and Physical was performed, and patient medications and allergies were reviewed. The patient's tolerance of previous anesthesia was also reviewed. The risks and benefits of the procedure and the sedation options and risks were discussed with the patient. All questions were answered, and informed consent was obtained. Prior Anticoagulants: The patient has taken no previous anticoagulant or antiplatelet agents. ASA Grade Assessment: III - A patient with severe systemic disease. After reviewing the risks and benefits, the patient was deemed in satisfactory condition to undergo the procedure. After I obtained informed consent, the scope was passed under direct vision. Throughout the procedure, the patient's blood pressure, pulse, and oxygen saturations were monitored continuously. The Colonoscope was introduced through the anus and advanced to the terminal ileum. The colonoscopy was performed without difficulty. The patient tolerated the procedure well. The quality of the bowel preparation was good. The terminal ileum, ileocecal valve, appendiceal orifice, and rectum were photographed. Findings: The perianal and digital rectal examinations were normal. A 12 mm polyp was found in the cecum. The polyp was flat. The polyp was removed with a saline injection-lift technique using a hot snare. Resection and retrieval were complete. To prevent bleeding after the polypectomy, one hemostatic clip was successfully placed (MR conditional). There was no bleeding at the end of the procedure. A 6 mm polyp was found in the rectum. The polyp was sessile. The polyp was removed with a hot snare. Resection and retrieval were complete. Non-bleeding internal hemorrhoids were found during retroflexion. The hemorrhoids were small. Impression: - One 12 mm polyp in the cecum, removed using injection-lift and a hot snare. Resected and retrieved. Clip (MR conditional) was placed. - One 6 mm polyp in the rectum, removed with a hot snare. Resected and retrieved. - Non-bleeding internal hemorrhoids. Recommendation: - Return patient to hospital [facility] for ongoing care. - Advance diet as tolerated. - Continue present medications. - Await pathology results. Lobo DevonteLizette Petty, DO 02/10/2020 4:43:02 PM This report has been signed electronically. Note Initiated On: 02/10/2020 4:07 PM Number of Addenda: 0 I attest to the content of the Intraoperative Record and orders documented therein, exceptions below {[id number]}
--- NOTE | 2020-02-10 18:03 | Discharge Summary ---
Date of Service February 10, 2020 Admission HPI Per Admitting Provider Mr. Diop is a 74 yo CM who presented to the ER last night with hematochezia. He states that he had multiple episodes of bright red blood per rectum filling the toilet bowl. Upon arrival to the ER, he was noted to have an H/H of 8.6/26.3. He has been chronically anemic, with a Hgb of 9.1 in October as per his prior labs. At the time I saw him this AM, he states that he is feeling much better. He notes that he did have a brown stool this AM. He denies any lightheadedness, dizziness, abdominal pain, fevers, chills, nausea, vomiting, diarrhea, hematemesis or melena. He does occasionally take Ibuprofen therapy. He states that his last colonoscopy was approximately 6 years ago, however his most recent colonoscopy per our records is from 2011, and he was found to have diverticulosis and Internal hemorrhoids at that time. He has no further complaints. Principal Diagnosis Lower GI bleed - Likely hemorrhoids Discharge Exam Constitutional WD/WN, vitals as above Eyes EOM intact bilaterally; no conjunctival abnormality ENMT external ear and nose normal, oropharynx normal Neck trachea midline, no thyromegaly normal visual inspection Respiratory normal respiratory effort, lungs clear to auscultation no respiratory distress Cardiovascular RRR, no murmur, no edema Gastrointestinal (Abdomen) Inspection/Auscultation: abdomen normal to inspection; abdomen not distended Musculoskeletal no cyanosis or clubbing, extremities motor strength 5/5 Skin no rashes, warm and dry Neurologic moves all extremities and awake Psychiatric Orientation: alert, oriented to person and cooperative Discharge Data Allergies Allergy/AdvReac Type Severity Reaction Status Date / Time No Known Allergies Allergy Verified 02/10/20 15:42 Consultations 02/08/20 10:52 ED Decision to Admit Stat 02/08/20 15:38 Consult Gastroenterology Routine Procedures Performed Operation Date: 02/10/20 16:00 Actual Procedures p Colonoscopy Polypectomy - Lobo Petty, DO Ordered Studies 02/08/20 09:55 CT abd pelvis IV con only Stat Hospital Course (1) Acute lower gastrointestinal bleeding: No further bleeding on 02/08 or 02/09. - Hgb stable at 8.7. - Colonoscopy on 02/09 showed 2 polyps (non-bleeding) and small internal hemorrhoids. Possibly hemorrhoid bleeding. - Gave IV iron x 2 doses while inpatient. - Follow up with GI given his significant microcytic anemia. May require EGD and/or capsule endoscopy if continues. (2) Acute blood loss anemia: Secondary to problem 1. - Does not require transfusion at this time, likely was hemoconcentrated when he came in which explains his early dip. (3) Diabetes mellitus type 2, uncontrolled: A1c was 8.9% in 10/2019. 8.3% this admission. - Held home oral meds; return to home regimen on discharge. (4) Hypercholesterolemia: - Continue gemfibrozil as able. (5) DVT prophylaxis: SCDs - Low DVT risk per admission calculator & GI bleeding Total Time Total Time Spent Total Time Spent (In Minutes): 35 Discharge Plan Discharge Items Patient Disposition: Home - Self-Care Reason For Visit: RECTAL BLEEDING Discharge Diagnosis: Rectal bleeding - Likely from hemorrhoids Condition on Discharge: Good Activity: Resume your previous activity Non-emergency contact: Primary Care Provider Call non-emergency contact if: your symptoms worsen Follow-up/Referrals: Lobo Petty, [Physician] - (Please see Dr. Petty in 2 weeks for any furth er treatment needed.) Ramin Moreno III, MD [Primary Care Provider] - Diet: Carb Consistent or DM2 and Heart Healthy Addtl Attending Provider Instructions: Mr. Diop, You were admitted to the hospital with rectal bleeding. Luckily this resolved on its own. You were feeling well by discharge, and we are sending you home. On the colonoscopy, we found some hemorrhoids, and it is possible this is what was bleeding. If the bleeding recurs, please speak with Dr. Moreno, Dr. Petty, or come back to the hospital. Your colonoscopy today showed [address] Petty was able to remove. It is possible these were bleeding, though we didn't see any bleeding during the colonoscopy. We will await the pathology to determine what they were. Their sizes (1.2 cm and 0.6 cm) are on the small to small-medium size. Please follow up with Dr. Petty on any further treatment you need for them. You also had a fairly low hemoglobin (called anemia). You did not need any blood here, but we gave you some iron in your IV to help keep your stores up. Please continue your home oral iron supplement and speak with Dr. Moreno about any further treatments you need. Pending Studies at Discharge: Yes Studies:: Pathology of polyps Stand-Alone Forms: My [facility], Smoking Cessation Medications and DC Order Prescriptions: Continued gemfibrozil 600 mg tablet 600 mg PO BID Qty: 60 RF: 5 tamsulosin 0.4 mg capsule 0.4 mg PO HS Qty: 90 RF: 1 glimepiride 4 mg tablet 4 mg PO BID Qty: 180 RF: 3 metformin 500 mg tablet 1,000 mg PO BID Qty: 360 RF: 3 Tradjenta 5 mg tablet 5 mg PO QAM RF: 0 gabapentin 100 mg capsule 100 mg PO PM RF: 0 finasteride 5 mg tablet 5 mg PO QAM RF: 0 multivitamin Tablet 1 tab PO QAM RF: 0 ibuprofen 200 mg Capsule 200 mg PO Q6H PRN (Reason: Pain) RF: 0 omega-3 fatty acids Capsule 2,000 mg PO QAM RF: 0 acetaminophen [Tylenol] 325 mg Tablet 325 mg PO QID PRN (Reason: Pain) RF: 0 Discharge Orders: Discharge Order (Routine); Ordered 02/10/20 Ordered By: Estevan Francis/Other Patient Handouts: Managing Type 2 Diabetes, Anatomy of the Digestive System Admission Data Admit Date/Time: 02/08/20 11:57 Attending Provider: Estevan Rodgers Admit Provider: Manolo Galarza Primary Care Provider: Ramin Moreno III Other Providers: Lobo Petty ; Estevan Rodgers Other Interventions: Discharge Summary Assessment (RN) Last Done: 02/10/20 17:25 Coding Level of Care Code D/C Day Management >30 mins Diagnoses Acute lower gastrointestinal bleeding K92.2 Acute blood loss anemia D62 Diabetes mellitus type 2, uncontrolled E11.65 Hypercholesterolemia E78.00 DVT prophylaxis Z29.9
== END 2020-02-10 18:40 | disposition home or self-care (01) | DRG 394 ==
LOC: ED 08:46 → 3W 11:57 → SUATTDRO 11:57 → 3W 12:50